=== PATIENT | male | born 1955 | race Caucasian/White ===

== ENCOUNTER 2017-11-09 23:43 | Emergency (ER) | payer OTHER ==
[2017-11-10] MEDS: PIPER-TAZO 3.375 GM IV (PMX) 100 ML IVPB (00:55)
[2017-11-10] MEDS: morphine 4 MG/ML VIAL IV ×2 (00:55→01:17)
[2017-11-10] MEDS: ONDANSETRON 4 MG INJ IV ×2 (00:55→01:17)
[2017-11-10 01:21] LABS: ADD MAN DIFF? NO
[2017-11-10 01:26] LABS: BASOPHILS % 0.3 % (0.0-2.0); EOSINOPHILS # 0.2 10^3/ul (0.0-0.5); HEMATOCRIT 40.5 % (42.0-52.0); HEMOGLOBIN 13.4 g/dl (14.0-18.0); LYMPHOCYTES # 1.9 10^3/ul (0.8-2.9); MEAN CORPUSCULAR HEMOGLOBIN 30.1 pg (29.0-33.0); MEAN CORPUSCULAR HGB CONC 33.1 g/dl (32.0-37.0); MEAN PLATELET VOLUME 10.3 fl (7.4-10.4); MONOCYTE # 0.9 10^3/ul (0.3-0.9); MONOCYTES % 11.1 % (0.0-11.0); NEUTROPHIL # 4.9 10^3/ul (1.6-7.5); NEUTROPHILS % 62.3 % (39.0-77.0); PLATELET COUNT 251 10^3/UL (140-415); RED BLOOD COUNT 4.45 10^6/ul (4.70-6.10); RED CELL DISTRIBUTION WIDTH 13.2 % (11.5-14.5)
[2017-11-10 01:26] LABS: WHITE BLOOD COUNT 7.9 10^3/ul (4.8-10.8)
[2017-11-10 01:41] LABS: ANION GAP 14 (8-16); BLOOD UREA NITROGEN 30 mg/dl (7-20); CARBON DIOXIDE 27 mmol/L (21-31); CHLORIDE 103 mmol/L (97-110); GLUCOSE 91 mg/dl (70-220); POTASSIUM 4.4 mmol/L (3.5-5.1); SODIUM 140 mmol/L (135-144)
== END 2017-11-10 03:18 | disposition home or self-care (01) ==
LOC: E/R 23:43
DX: L03.116 Cellulitis of left lower limb (principal); I10 Essential (primary) hypertension; Z79.82 Long term (current) use of aspirin; Z79.01 Long term (current) use of anticoagulants
CPT/HCPCS: 36415; 80048; 85025; 93971; 96374; 99284-25

== ENCOUNTER 2018-01-15 07:22 | Emergency (ER) | payer OTHER ==
[2018-01-15] MEDS: morphine 2 MG INJ IV (08:24)
[2018-01-15] MEDS: SOD CHLORIDE 0.9% 1,000 ML IV (08:24)
[2018-01-15] MEDS: ONDANSETRON 4 MG INJ IV (10:27)
[2018-01-15 10:35] LABS: ADD MAN DIFF? NO
[2018-01-15 10:41] LABS: WHITE BLOOD COUNT 10.2 10^3/ul (4.8-10.8)
[2018-01-15 10:41] LABS: BASOPHILS % 0.1 % (0.0-2.0); EOSINOPHILS # 0.1 10^3/ul (0.0-0.5); EOSINOPHILS % 0.8 % (0.0-7.0); HEMATOCRIT 42.7 % (42.0-52.0); HEMOGLOBIN 14.3 g/dl (14.0-18.0); LYMPHOCYTES # 1.2 10^3/ul (0.8-2.9); LYMPHOCYTES % 11.4 % (15.0-51.0); MEAN CORPUSCULAR HGB CONC 33.5 g/dl (32.0-37.0); MEAN CORPUSCULAR VOLUME 89.5 fl (82.0-101.0); MEAN PLATELET VOLUME 10.4 fl (7.4-10.4); MONOCYTE # 0.8 10^3/ul (0.3-0.9); MONOCYTES % 7.7 % (0.0-11.0); NEUTROPHIL # 8.1 10^3/ul (1.6-7.5); NEUTROPHILS % 79.5 % (39.0-77.0); PLATELET COUNT 304 10^3/UL (140-415); RED BLOOD COUNT 4.77 10^6/ul (4.70-6.10); RED CELL DISTRIBUTION WIDTH 13.5 % (11.5-14.5)
[2018-01-15 10:55] LABS: ALANINE AMINOTRANSFERASE 22 IU/L (13-69); ALBUMIN 3.6 g/dl (3.3-4.9); ALBUMIN/GLOBULIN RATIO 1.02; ALKALINE PHOSPHATASE 70 IU/L (42-121); ANION GAP 17 (8-16); ASPARTATE AMINO TRANSFERASE 22 IU/L (15-46); BILIRUBIN,INDIRECT 0.8 mg/dl (0-1.1); BILIRUBIN,TOTAL 0.8 mg/dl (0.2-1.3); BLOOD UREA NITROGEN 18 mg/dl (7-20); CALCIUM 8.4 mg/dl (8.4-10.2); CARBON DIOXIDE 26 mmol/L (21-31); CHLORIDE 106 mmol/L (97-110); CREATININE 1.19 mg/dl (0.61-1.24); GLUCOSE 90 mg/dl (70-220); LIPASE 28 U/L (23-300); POTASSIUM 3.8 mmol/L (3.5-5.1); SODIUM 145 mmol/L (135-144); TOTAL PROTEIN 7.1 g/dl (6.1-8.1)
[2018-01-15 11:08] LABS: TROPONIN-I < 0.012 ng/ml (0.00-0.12)
[2018-01-15 12:23] LABS: ADD UMIC NO; UR ASCORBIC ACID NEGATIVE (NEGATIVE); UR BILIRUBIN (Dip) NEGATIVE (NEGATIVE); UR BLOOD (Dip) NEGATIVE (NEGATIVE); UR CLARITY CLEAR (CLEAR); UR COLOR YELLOW (YELLOW); UR GLUCOSE (Dip) NEGATIVE (NEGATIVE); UR KETONES (Dip) 1+ mg/dL (NEGATIVE); UR LEUKOCYTE ESTERASE (Dip) NEGATIVE Leu/ul (NEGATIVE); UR NITRITE (Dip) NEGATIVE (NEGATIVE); UR SPECIFIC GRAVITY (Dip) 1.026 (1.003-1.030); UR TOTAL PROTEIN (Dip) NEGATIVE (NEGATIVE); UR UROBILINOGEN (Dip) 2+ mg/dL (NEGATIVE)
== END 2018-01-15 12:37 | disposition home or self-care (01) ==
LOC: FTE 07:22
DX: R10.84 Generalized abdominal pain (principal); I10 Essential (primary) hypertension; I25.10 Atherosclerotic heart disease of native coronary artery without angina pectoris; Z79.82 Long term (current) use of aspirin
CPT/HCPCS: 36415; 74176; 80053; 81003; 83690; 84484; 85025; 96374; 99285-25

== ENCOUNTER 2018-06-03 22:50 | Inpatient (IN) | payer OTHER ==
[2018-06-04 00:09] LABS: ADD MAN DIFF? NO
[2018-06-04] MEDS: ONDANSETRON 4 MG INJ IV ×2 (00:10→02:21)
[2018-06-04] MEDS: FAMOTIDINE 20 MG INJ IV ×3 (00:10→20:46)
[2018-06-04] MEDS: SOD CHLORIDE 0.9% 1,000 ML IV (00:10)
[2018-06-04 00:27] LABS: BASOPHILS % 0.1 % (0.0-2.0); EOSINOPHILS # 0.4 10^3/ul (0.0-0.5); EOSINOPHILS % 3.3 % (0.0-7.0); HEMATOCRIT 46.1 % (42.0-52.0); HEMOGLOBIN 15.2 g/dl (14.0-18.0); LYMPHOCYTES # 1.6 10^3/ul (0.8-2.9); LYMPHOCYTES % 14.7 % (15.0-51.0); MEAN CORPUSCULAR VOLUME 91.1 fl (82.0-101.0); MEAN PLATELET VOLUME 10.7 fl (7.4-10.4); MONOCYTES % 9.2 % (0.0-11.0); NEUTROPHIL # 7.6 10^3/ul (1.6-7.5); NEUTROPHILS % 72.2 % (39.0-77.0); PLATELET COUNT 303 10^3/UL (140-415); RED BLOOD COUNT 5.06 10^6/ul (4.70-6.10); RED CELL DISTRIBUTION WIDTH 13.4 % (11.5-14.5)
[2018-06-04 00:27] LABS: WHITE BLOOD COUNT 10.5 10^3/ul (4.8-10.8)
[2018-06-04 00:35] LABS: ALANINE AMINOTRANSFERASE 29 IU/L (13-69); ALBUMIN 3.3 g/dl (3.3-4.9); ALBUMIN/GLOBULIN RATIO 0.94; ALKALINE PHOSPHATASE 71 IU/L (42-121); ANION GAP 11 (8-16); ASPARTATE AMINO TRANSFERASE 30 IU/L (15-46); BILIRUBIN,INDIRECT 1.2 mg/dl (0-1.1); BILIRUBIN,TOTAL 1.2 mg/dl (0.2-1.3); BLOOD UREA NITROGEN 18 mg/dl (7-20); CALCIUM 8.5 mg/dl (8.4-10.2); CARBON DIOXIDE 23 mmol/L (21-31); CHLORIDE 109 mmol/L (97-110); CREATININE 0.82 mg/dl (0.61-1.24); GLUCOSE 107 mg/dl (70-220); LIPASE 25 U/L (23-300); SODIUM 139 mmol/L (135-144); TOTAL PROTEIN 6.8 g/dl (6.1-8.1)
[2018-06-04 00:38] LABS: INR 1.02; PROTIME 13.5 Sec (11.9-14.9); PT RATIO 1.1
[2018-06-04 00:39] LABS: PARTIAL THROMBOPLASTIN TIME 29.3 Sec (25.0-35.0)
[2018-06-04] MEDS: LIDOCAINE 2% VISC 15 ML CUP PO (01:50)
[2018-06-04] MEDS ORDERED: LORAZEPAM 2 MG INJ IV (04:00)
[2018-06-04] MEDS ORDERED: ONDANSETRON 4 MG INJ IV (05:00)
[2018-06-04] MEDS ORDERED: ALBUTEROL/IPRATROPIUM (NEB) 3 ML AMP HHN (05:00)
[2018-06-04] MEDS ORDERED: NACL 0.9% 3 ML SYG IV (05:00)
[2018-06-04] MEDS ORDERED: morphine 2 MG INJ IV (05:00)
[2018-06-04 05:43] LABS: ADD MAN DIFF? NO
[2018-06-04 05:45] LABS: WHITE BLOOD COUNT 11.8 10^3/ul (4.8-10.8)
[2018-06-04 05:45] LABS: BASOPHILS % 0.1 % (0.0-2.0); EOSINOPHILS # 0.2 10^3/ul (0.0-0.5); HEMATOCRIT 44.5 % (42.0-52.0); HEMOGLOBIN 15.1 g/dl (14.0-18.0); LYMPHOCYTES # 1.3 10^3/ul (0.8-2.9); LYMPHOCYTES % 10.6 % (15.0-51.0); MEAN CORPUSCULAR HEMOGLOBIN 30.6 pg (29.0-33.0); MEAN CORPUSCULAR HGB CONC 33.9 g/dl (32.0-37.0); MEAN CORPUSCULAR VOLUME 90.3 fl (82.0-101.0); MEAN PLATELET VOLUME 9.9 fl (7.4-10.4); MONOCYTE # 0.6 10^3/ul (0.3-0.9); MONOCYTES % 5.4 % (0.0-11.0); NEUTROPHIL # 9.6 10^3/ul (1.6-7.5); NEUTROPHILS % 81.6 % (39.0-77.0); PLATELET COUNT 289 10^3/UL (140-415); RED BLOOD COUNT 4.93 10^6/ul (4.70-6.10); RED CELL DISTRIBUTION WIDTH 13.5 % (11.5-14.5)
[2018-06-04 06:37] LABS: ALANINE AMINOTRANSFERASE 30 IU/L (13-69); ALBUMIN 2.8 g/dl (3.3-4.9); ALKALINE PHOSPHATASE 74 IU/L (42-121); ANION GAP 10 (8-16); ASPARTATE AMINO TRANSFERASE 21 IU/L (15-46); BLOOD UREA NITROGEN 16 mg/dl (7-20); CARBON DIOXIDE 20 mmol/L (21-31); CHLORIDE 112 mmol/L (97-110); CREATININE 0.78 mg/dl (0.61-1.24); GLUCOSE 114 mg/dl (70-220); MAGNESIUM 1.4 mg/dl (1.7-2.5); PHOSPHORUS 3.1 mg/dl (2.5-4.9); POTASSIUM 3.8 mmol/L (3.5-5.1); SODIUM 138 mmol/L (135-144); TOTAL PROTEIN 5.9 g/dl (6.1-8.1)
[2018-06-04] MEDS: DEXTROSE 5%-0.45% NACL 1,000 ML IV ×3 (08:30→23:51)
[2018-06-04] MEDS ORDERED: hydrALAzine 20 MG INJ IV (11:30)
[2018-06-04] MEDS: DIATR MEGLU/DIATRIZOATE SODIUM 120 ML BTL (11:32)
[2018-06-04] MEDS: MAGNESIUM SULFATE 3 GM in DEXTROSE 5% 100 ML IVPB (16:07)
[2018-06-05 06:36] LABS: ADD MAN DIFF? NO
[2018-06-05 06:37] LABS: WHITE BLOOD COUNT 8.3 10^3/ul (4.8-10.8)
[2018-06-05 06:37] LABS: BASOPHILS % 0.1 % (0.0-2.0); EOSINOPHILS # 0.4 10^3/ul (0.0-0.5); EOSINOPHILS % 4.3 % (0.0-7.0); HEMATOCRIT 43.9 % (42.0-52.0); HEMOGLOBIN 14.4 g/dl (14.0-18.0); LYMPHOCYTES # 2.3 10^3/ul (0.8-2.9); LYMPHOCYTES % 27.3 % (15.0-51.0); MEAN CORPUSCULAR HEMOGLOBIN 30.3 pg (29.0-33.0); MEAN CORPUSCULAR HGB CONC 32.8 g/dl (32.0-37.0); MEAN CORPUSCULAR VOLUME 92.2 fl (82.0-101.0); MEAN PLATELET VOLUME 10.6 fl (7.4-10.4); MONOCYTE # 0.6 10^3/ul (0.3-0.9); MONOCYTES % 6.6 % (0.0-11.0); NEUTROPHIL # 5.1 10^3/ul (1.6-7.5); NEUTROPHILS % 61.3 % (39.0-77.0); PLATELET COUNT 249 10^3/UL (140-415); RED BLOOD COUNT 4.76 10^6/ul (4.70-6.10); RED CELL DISTRIBUTION WIDTH 13.6 % (11.5-14.5)
[2018-06-05 07:07] LABS: ANION GAP 10 (8-16); BLOOD UREA NITROGEN 12 mg/dl (7-20); CALCIUM 8.1 mg/dl (8.4-10.2); CARBON DIOXIDE 22 mmol/L (21-31); CHLORIDE 113 mmol/L (97-110); CREATININE 0.99 mg/dl (0.61-1.24); GLUCOSE 105 mg/dl (70-220); MAGNESIUM 2.1 mg/dl (1.7-2.5); PHOSPHORUS 2.1 mg/dl (2.5-4.9); POTASSIUM 4.1 mmol/L (3.5-5.1); SODIUM 141 mmol/L (135-144)
[2018-06-05] MEDS: DEXTROSE 5%-0.45% NACL 1,000 ML IV ×2 (10:33→18:18)
[2018-06-05] MEDS: FAMOTIDINE 20 MG INJ IV ×2 (11:23→21:04)
[2018-06-05] MEDS ORDERED: HYDROCODONE/APAP (10/325) TAB PO (14:30)
[2018-06-05] MEDS: CLOPIDOGREL 75 MG TAB PO (14:43)
[2018-06-05] MEDS: ASPIRIN 81 MG TAB NGT (14:44)
[2018-06-05] MEDS: METOPROLOL 25 MG TAB NGT ×2 (14:44→21:00)
[2018-06-05] MEDS: LISINOPRIL 10 MG TAB PO (14:44)
[2018-06-05] MEDS: CARISOPRODOL 350 MG TAB PO (18:18)
[2018-06-05] MEDS: ATORVASTATIN 80 MG TAB NGT (21:04)
[2018-06-06] MEDS: DEXTROSE 5%-0.45% NACL 1,000 ML IV (02:47)
[2018-06-06] MEDS: CARISOPRODOL 350 MG TAB PO (09:00)
[2018-06-06] MEDS: LISINOPRIL 10 MG TAB PO (09:21)
[2018-06-06] MEDS: METOPROLOL 25 MG TAB NGT (09:22)
[2018-06-06] MEDS: CLOPIDOGREL 75 MG TAB PO (09:23)
[2018-06-06] MEDS: FAMOTIDINE 20 MG INJ IV (09:23)
[2018-06-06] MEDS: ASPIRIN 81 MG TAB NGT (09:23)
== END 2018-06-06 11:05 | disposition home or self-care (01) | DRG 390 ==
LOC: E/R 22:50 → 2NE 06-04 01:51
DX: K56.609 Unspecified intestinal obstruction, unspecified as to partial versus complete obstruction (principal); E78.5 Hyperlipidemia, unspecified; I25.10 Atherosclerotic heart disease of native coronary artery without angina pectoris; I10 Essential (primary) hypertension; K43.2 Incisional hernia without obstruction or gangrene; K40.90 Unilateral inguinal hernia, without obstruction or gangrene, not specified as recurrent; Z95.1 Presence of aortocoronary bypass graft
CPT/HCPCS: 36415; 71045; 74018; 74176; 74250; 80048; 80053; 83690; 83735; 84100; 85025; 85610; 85730; 96374; 96375; 97161; 99285-25

== ENCOUNTER 2018-11-09 14:15 | Inpatient (IN) | payer OTHER ==
[2018-11-09 19:43] LABS: ADD MAN DIFF? NO
[2018-11-09] MEDS: SOD CHLORIDE 0.9% 1,000 ML IV ×3 (19:43→23:50)
[2018-11-09 19:44] LABS: BASOPHILS % 0.1 % (0.0-2.0); EOSINOPHILS # 0.2 10^3/ul (0.0-0.5); EOSINOPHILS % 2.2 % (0.0-7.0); HEMOGLOBIN 15.3 g/dl (14.0-18.0); LYMPHOCYTES # 1.2 10^3/ul (0.8-2.9); LYMPHOCYTES % 11.2 % (15.0-51.0); MEAN CORPUSCULAR HEMOGLOBIN 29.8 pg (29.0-33.0); MEAN CORPUSCULAR HGB CONC 32.6 g/dl (32.0-37.0); MEAN CORPUSCULAR VOLUME 91.4 fl (82.0-101.0); MEAN PLATELET VOLUME 9.7 fl (7.4-10.4); MONOCYTE # 0.8 10^3/ul (0.3-0.9); MONOCYTES % 7.5 % (0.0-11.0); NEUTROPHIL # 8.4 10^3/ul (1.6-7.5); NEUTROPHILS % 78.6 % (39.0-77.0); PLATELET COUNT 250 10^3/UL (140-415); RED BLOOD COUNT 5.14 10^6/ul (4.70-6.10); RED CELL DISTRIBUTION WIDTH 13.4 % (11.5-14.5)
[2018-11-09 19:44] LABS: WHITE BLOOD COUNT 10.6 10^3/ul (4.8-10.8)
[2018-11-09 20:02] LABS: ALANINE AMINOTRANSFERASE 28 IU/L (13-69); ALBUMIN 4.1 g/dl (3.3-4.9); ALKALINE PHOSPHATASE 78 IU/L (42-121); ANION GAP 13 (5-13); ASPARTATE AMINO TRANSFERASE 28 IU/L (15-46); BILIRUBIN,INDIRECT 0.9 mg/dl (0-1.1); BILIRUBIN,TOTAL 0.9 mg/dl (0.2-1.3); BLOOD UREA NITROGEN 16 mg/dl (7-20); CALCIUM 8.6 mg/dl (8.4-10.2); CARBON DIOXIDE 29 mmol/L (21-31); CHLORIDE 102 mmol/L (97-110); CREATININE 1.17 mg/dl (0.61-1.24); Estimated GFR > 60 mL/min (>60); GLUCOSE 102 mg/dl (70-220); LIPASE 26 U/L (23-300); POTASSIUM 4.4 mmol/L (3.5-5.1); SODIUM 144 mmol/L (135-144); TOTAL PROTEIN 7.8 g/dl (6.1-8.1)
[2018-11-09] MEDS: IODIXANOL LOCM 50 ML BTL (21:04)
[2018-11-09] MEDS: IODIXANOL LOCM 100 ML BTL (21:04)
[2018-11-09] MEDS: SOD CHLORIDE 0.9% 100 ML (21:04)
[2018-11-09] MEDS: DIATR MEGLU/DIATRIZOATE SODIUM 120 ML BTL PO (21:30)
[2018-11-09] MEDS ORDERED: ONDANSETRON 4 MG INJ IV ×2 (22:00→23:30)
[2018-11-09] MEDS ORDERED: morphine 4 MG/ML VIAL IV (23:30)
[2018-11-09] MEDS ORDERED: DOCUSATE SODIUM 100 MG CAP PO (23:30)
[2018-11-09] MEDS ORDERED: NACL 0.9% 3 ML SYG IV (23:30)
[2018-11-09] MEDS ORDERED: BISACODYL (EC) 5 MG TAB PO (23:30)
[2018-11-09] MEDS ORDERED: METOCLOPRAMIDE 10 MG INJ IV (23:30)
[2018-11-09] MEDS ORDERED: ACETAMINOPHEN 325 MG TAB PO (23:30)
[2018-11-10 05:24] LABS: ADD MAN DIFF? NO
[2018-11-10 05:30] LABS: WHITE BLOOD COUNT 8.2 10^3/ul (4.8-10.8)
[2018-11-10 05:30] LABS: BASOPHILS % 0.2 % (0.0-2.0); EOSINOPHILS # 0.3 10^3/ul (0.0-0.5); HEMATOCRIT 43.2 % (42.0-52.0); LYMPHOCYTES # 1.8 10^3/ul (0.8-2.9); LYMPHOCYTES % 22.2 % (15.0-51.0); MEAN CORPUSCULAR HEMOGLOBIN 29.4 pg (29.0-33.0); MEAN CORPUSCULAR HGB CONC 32.4 g/dl (32.0-37.0); MEAN CORPUSCULAR VOLUME 90.8 fl (82.0-101.0); MEAN PLATELET VOLUME 10.1 fl (7.4-10.4); MONOCYTE # 0.8 10^3/ul (0.3-0.9); MONOCYTES % 9.3 % (0.0-11.0); NEUTROPHIL # 5.3 10^3/ul (1.6-7.5); NEUTROPHILS % 63.9 % (39.0-77.0); PLATELET COUNT 222 10^3/UL (140-415); RED BLOOD COUNT 4.76 10^6/ul (4.70-6.10); RED CELL DISTRIBUTION WIDTH 13.3 % (11.5-14.5)
[2018-11-10] MEDS ORDERED: IBUPROFEN 400 MG TAB PO (05:30)
[2018-11-10 05:40] LABS: HEMOGLOBIN A1C 5.3 % (0-5.9)
[2018-11-10 06:07] LABS: ALANINE AMINOTRANSFERASE 26 IU/L (13-69); ALBUMIN 3.1 g/dl (3.3-4.9); ALKALINE PHOSPHATASE 70 IU/L (42-121); ANION GAP 12 (5-13); ASPARTATE AMINO TRANSFERASE 24 IU/L (15-46); BILIRUBIN,INDIRECT 0.8 mg/dl (0-1.1); BILIRUBIN,TOTAL 0.8 mg/dl (0.2-1.3); BLOOD UREA NITROGEN 12 mg/dl (7-20); CALCIUM 8.1 mg/dl (8.4-10.2); CARBON DIOXIDE 24 mmol/L (21-31); CHLORIDE 104 mmol/L (97-110); CHOL/HDL RATIO 3.9 RATIO; CHOLESTEROL 118 mg/dl (100-200); CREATININE 0.85 mg/dl (0.61-1.24); Estimated GFR > 60 mL/min (>60); GLUCOSE 97 mg/dl (70-220); HDL CHOLESTEROL 30 mg/dl (30-78); LDL CHOLESTEROL,CALCULATED 69 mg/dl; MAGNESIUM 1.6 mg/dl (1.7-2.5); SODIUM 140 mmol/L (135-144); TOTAL PROTEIN 6.2 g/dl (6.1-8.1); TRIGLYCERIDES 94 mg/dl (0-149)
[2018-11-10] MEDS: DIATR MEGLU/DIATRIZOATE SODIUM 120 ML BTL (08:33)
[2018-11-10] MEDS: ASPIRIN (EC) 81 MG TAB PO (08:42)
[2018-11-10 08:52] LABS: INR 0.97
[2018-11-10 08:53] LABS: PARTIAL THROMBOPLASTIN TIME 30.8 Sec (23.0-35.0)
[2018-11-10] MEDS: SOD CHLORIDE 0.9% 1,000 ML IV (11:00)
[2018-11-10] MEDS ORDERED: ATORVASTATIN 80 MG TAB PO (21:00)
== END 2018-11-10 15:20 | disposition home or self-care (01) | DRG 390 ==
LOC: E/R 14:15 → MS1 21:47
DX: K56.609 Unspecified intestinal obstruction, unspecified as to partial versus complete obstruction (principal); K43.2 Incisional hernia without obstruction or gangrene; Z95.1 Presence of aortocoronary bypass graft; I10 Essential (primary) hypertension; K56.7 Ileus, unspecified
CPT/HCPCS: 36415; 74177; 74250; 80053; 80061; 83036; 83690; 83735; 84443; 85025; 85610; 85730; 96360; 96361; 99285-25

== ENCOUNTER 2019-04-27 18:15 | Emergency (ER) | payer SELFPAY, OTHER | END 2019-04-27 23:07 | disposition left against medical advice (07) | LOC: E/R 18:15 | DX: Z53.21 Procedure and treatment not carried out due to patient leaving prior to being seen by health care provider (principal) ==

== ENCOUNTER 2019-04-28 03:02 | Emergency (ER) | payer OTHER ==
[2019-04-28] MEDS ORDERED: morphine 4 MG/ML VIAL IV (06:46)
[2019-04-28] MEDS: ONDANSETRON 4 MG INJ IV ×2 (06:59→09:33)
[2019-04-28] MEDS: FAMOTIDINE 20 MG INJ IV (06:59)
[2019-04-28] MEDS: SOD CHLORIDE 0.9% 1,000 ML IV (06:59)
[2019-04-28] MEDS: BELLADONNA/PHENOBARBITAL TAB PO (06:59)
[2019-04-28] MEDS: LIDOCAINE/MYLANTA 40 ML BTL PO (07:06)
[2019-04-28 07:21] LABS: ADD MAN DIFF? NO
[2019-04-28 07:23] LABS: BASOPHILS % 0.2 % (0.0-2.0); EOSINOPHILS # 0.3 10^3/ul (0.0-0.5); EOSINOPHILS % 2.2 % (0.0-7.0); HEMOGLOBIN 16.2 g/dl (14.0-18.0); LYMPHOCYTES # 1.1 10^3/ul (0.8-2.9); LYMPHOCYTES % 8.5 % (15.0-51.0); MEAN CORPUSCULAR HEMOGLOBIN 29.3 pg (29.0-33.0); MEAN CORPUSCULAR HGB CONC 32.4 g/dl (32.0-37.0); MEAN CORPUSCULAR VOLUME 90.4 fl (82.0-101.0); MEAN PLATELET VOLUME 10.3 fl (7.4-10.4); MONOCYTES % 7.3 % (0.0-11.0); NEUTROPHIL # 10.6 10^3/ul (1.6-7.5); NEUTROPHILS % 81.3 % (39.0-77.0); PLATELET COUNT 302 10^3/UL (140-415); RED BLOOD COUNT 5.53 10^6/ul (4.70-6.10); RED CELL DISTRIBUTION WIDTH 13.9 % (11.5-14.5)
[2019-04-28 07:42] LABS: ALANINE AMINOTRANSFERASE 23 IU/L (13-69); ALBUMIN 4.4 g/dl (3.3-4.9); ALBUMIN/GLOBULIN RATIO 1.04; ALKALINE PHOSPHATASE 101 IU/L (42-121); AMYLASE 78 U/L (11-123); ANION GAP 13 (5-13); ASPARTATE AMINO TRANSFERASE 28 IU/L (15-46); BILIRUBIN,INDIRECT 1.5 mg/dl (0-1.1); BILIRUBIN,TOTAL 1.5 mg/dl (0.2-1.3); BLOOD UREA NITROGEN 14 mg/dl (7-20); CALCIUM 9.2 mg/dl (8.4-10.2); CARBON DIOXIDE 24 mmol/L (21-31); CHLORIDE 107 mmol/L (97-110); Estimated GFR > 60 mL/min (>60); GLUCOSE 138 mg/dl (70-220); INR 0.97; LIPASE 43 U/L (23-300); POTASSIUM 4.1 mmol/L (3.5-5.1); SODIUM 144 mmol/L (135-144); TOTAL PROTEIN 8.6 g/dl (6.1-8.1)
[2019-04-28 07:43] LABS: PARTIAL THROMBOPLASTIN TIME 25.6 Sec (23.0-35.0)
[2019-04-28 07:54] LABS: TROPONIN-I < 0.012 ng/ml (0.000-0.120)
[2019-04-28] MEDS: DIPHENOXYLATE/ATROPINE TAB PO (09:12)
[2019-04-28] MEDS: METOCLOPRAMIDE 10 MG INJ IV (09:33)
== END 2019-04-28 11:49 | disposition home or self-care (01) ==
LOC: E/R 03:02
DX: E86.0 Dehydration (principal); R11.2 Nausea with vomiting, unspecified; R10.9 Unspecified abdominal pain; I25.2 Old myocardial infarction; Z79.82 Long term (current) use of aspirin; Z95.1 Presence of aortocoronary bypass graft
CPT/HCPCS: 74018; 80053; 82150; 83690; 84484; 85025; 85610; 85730; 93005; 96374; 96375; 96376; 99285-25

== ENCOUNTER 2019-05-18 12:28 | Emergency (ER) | payer OTHER | END 2019-05-18 15:26 | disposition home or self-care (01) | LOC: FTE 12:28 | DX: Z00.00 Encounter for general adult medical examination without abnormal findings (principal); I25.2 Old myocardial infarction; Z79.01 Long term (current) use of anticoagulants; Z79.82 Long term (current) use of aspirin; Z95.1 Presence of aortocoronary bypass graft | CPT/HCPCS: 99282; Z7502 ==

== ENCOUNTER → 2019-05-18 | Emergency (ER) | payer OTHER ==
[2019-05-18] MEDS: FAMOTIDINE 20 MG TAB PO (05:09)
[2019-05-18] MEDS: DIPHENHYDRAMINE 50 MG INJ IM (05:09)
== END | disposition home or self-care (01) ==
LOC: FTE 03:13
DX: L29.9 Pruritus, unspecified (principal); H57.89 Other specified disorders of eye and adnexa; I25.2 Old myocardial infarction; Z95.1 Presence of aortocoronary bypass graft
CPT/HCPCS: 96372; 99284-25; J1200